=== PATIENT | female | born 1970 | race Caucasian/White ===

== ENCOUNTER 2017-04-05 10:55 | Outpatient (CLI) | payer OTHER ==
[2017-04-05 11:13] LABS: BASOPHILS % 0.4 (0.0-1.5); EOSINOPHILS % 1.5 % (0.0-6.8); MEAN CORPUSCULAR VOLUME 90.9 fl (80.0-100.0); MONOCYTES % 4.4 % (0.0-11.0); NEUTROPHILS # 7.7 # k/uL (1.4-7.7)
[2017-04-05 12:12] LABS: eGFR (African) > 60; eGFR (Non-African) > 60
== END 2017-04-05 10:56 ==
LOC: LAB 10:55
PROVIDERS: ATTEND Family Medicine
DX: Z51.81 Encounter for therapeutic drug level monitoring (principal)
CPT/HCPCS: 36415; 80053; 85025

== ENCOUNTER 2017-10-17 08:14 | Outpatient (CLI) | payer OTHER ==
[2017-10-17 09:15] LABS: eGFR (African) > 60; eGFR (Non-African) > 60
== END 2017-10-17 08:15 ==
LOC: LAB 08:14
PROVIDERS: ATTEND Psychiatry & Neurology Psychiatry
DX: Z79.899 Other long term (current) drug therapy (principal)
CPT/HCPCS: 36415; 80048; 80061; 80178; 83036; 84443

== ENCOUNTER 2018-06-01 10:00 | Outpatient (CLI) | payer OTHER ==
[2018-06-01 10:36] LABS: eGFR (African) > 60; eGFR (Non-African) > 60
== END 2018-06-01 10:02 ==
LOC: LAB 10:00
PROVIDERS: ATTEND Psychiatry & Neurology Psychiatry
DX: Z79.899 Other long term (current) drug therapy (principal)
CPT/HCPCS: 36415; 80048; 80061; 80178; 84443

== ENCOUNTER 2018-12-03 13:16 | Outpatient (CLI) | payer OTHER ==
[2018-12-03 13:41] LABS: BASOPHILS % 0.9 (0.0-1.5); EOSINOPHILS % 2.7 % (0.0-6.8); MEAN CORPUSCULAR HEMOGLOBIN 29.2 pg (28.0-34.0); MONOCYTES % 6.5 % (0.0-11.0); NEUTROPHILS # 7.6 # k/uL (1.4-7.7)
== END 2018-12-03 13:25 ==
LOC: LAB 13:16
PROVIDERS: ATTEND Psychiatry & Neurology Psychiatry
DX: Z79.899 Other long term (current) drug therapy (principal)
CPT/HCPCS: 36415; 80061; 80178; 82947; 83036; 85025

== ENCOUNTER 2019-02-20 14:03 | Outpatient (CLI) | payer OTHER | END 2019-02-20 14:04 | LOC: LAB 14:03 | PROVIDERS: ATTEND Family Medicine | DX: R63.5 Abnormal weight gain (principal) | CPT/HCPCS: 36415; 84443 ==